=== PATIENT | male | born 1985 | race Caucasian/White ===

== ENCOUNTER 2016-09-24 21:37 | Emergency (ER) | payer OTHER ==
--- NOTE | 2016-09-24 23:06 | UC ---
Zully Bhatt Rebecca, scribed for Sapna Duong MD on 09/24/16 at 2237 . Abdominal Pain Male HPI - HPI Summary HPI Summary: Pt is a 30 y/o M who presents to [facility] c/o umbilical abd pain. Pain has been present for the last year, with intermittent episodes increasing in frequency from every few months to now approximately every 2 weeks. Last episode occurred today which was worse than previous episodes. Currently, pain is ranked 1/10 and not diffuse. There is no radiation of pain. Pain characterized as sharp and feeling as though he is constipated. Sx aggravated by laxatives, alleviated by marijuana, palpation and Pepto Bismol, unchanged by Gas-X. Has never taken a stool softener. Pt reports nausea, but denies vomiting. No hematuria. No radiation. Episodes typically will begin after sleeping for a few hours, waking him up with moderate abdominal pain. After about 45 minutes, he will proceed to have a formed BM and the pain will worsen, causing him to be unable to walk or stand. Pain will then continue for approximately 1 more hour, during which he lies in his bed, alternating positions. He typically would smoke marijuana at that point which would help ease him to sleep, after which he would wake up relatively pain free. Reports that previous episodes lasted 3-4 hours, whereas today's episode started at 7am and lasted approximately 8 hours. Pt states went to bed at 4am as he works nights. Reports that he ate Hebrew food and drank water 2.5 hours before going to sleep prior to the most recent episode. Notes that episodes are typically worse after eating fat-filled foods. Pt works overnights and typically stops drinking coffee at 1030 p.m. No extra caffeine. Pt states he was out to dinner with friend brandon. When he explained his symptoms, his friend suggested he be evaluated for appendicitis. Reports Lamotrigine medicationw as new around the time of onset of sx but pt psychiatrist do not think they are related. Pt has not discussed with PCP. FHx IBS, Celiacs Disease. Pt's medications were reviewed at this visit. - History of Current Complaint [place] [facility] [place] Complaint: STOMACH PAIN Time Seen by Provider: 09/24/16 22:32 Hx Obtained From: Patient Onset/Duration: Gradual Onset, Resolved Timing: Intermittent Episodes Lasting: - 3-4 hours Severity Initially: Moderate Severity Currently: Mild Pain Intensity: 1 Pain Scale Used: 0-10 Numeric Location: Diffuse Radiates: No Character: Sharp, Other - Feels constipation, cramping Alleviating Factor(s): Rest, Position, Meds - THC Associated Signs And Symptoms: Positive: Constipation, Other. Negative: Diaphoresis, Fever, Chest Pain, Back Pain, Nausea, Vomiting - Allergies/Home Medications Allergies/Adverse Reactions: Allergies Allergy/AdvReac Type Severity Reaction Status Date / Time Acetaminophen Allergy Swelling Verified 09/24/16 22:01 Home Medications: Home Medications Bupropion HCl [Wellbutrin Sr] 150 mg PO 09/24/16 [History] PMH/Surg Hx/FS Hx/Imm Hx Previously Healthy: Yes Endocrine History Of: Denies: Diabetes, Thyroid Disease Cardiovascular History Of: Denies: Cardiac Disorders, Hypertension Respiratory History Of: Denies: COPD, Asthma GI/ History Of: Denies: Ulcer Psychological History Of: Reports: Depression, Bipolar Disorder - Surgical History Surgical History: None - Family History Known Family History: Positive: Other - IBS, Celiacs Disease - Social History Occupation: Employed Full-time Lives: Alone Alcohol Use: None Substance Use Type: Marijuana Substance Use Comment - Amount & Last Used: for sleep Smoking Status (MU): Never Smoked Tobacco Type: eCigarettes Review of Systems Constitutional: Negative Skin: Negative Eyes: Negative ENT: Negative Respiratory: Negative Cardiovascular: Negative Gastrointestinal: Abdominal Pain - diffuse Genitourinary: Negative Motor: Negative Neurovascular: Negative Musculoskeletal: Negative Neurological: Negative Psychological: Negative All Other Systems Reviewed And Are Negative: Yes Physical Exam Triage Information Reviewed: Yes Appearance: Well-Appearing - no distress, easily changes position, ambulates, No Pain Distress, Well-Nourished Vital Signs: Initial Vital Signs Temp 97.5 F 09/24/16 21:49 Pulse 89 09/24/16 21:49 Resp 18 09/24/16 21:49 Pulse Ox 99 09/24/16 21:49 Vital Signs Reviewed: Yes Eyes: Positive: Conjunctiva Clear. Negative: Conjunctiva Inflamed ENT: Positive: Normal ENT inspection, Hearing grossly normal, Pharynx normal, TMs normal Dental Exam: Normal Neck exam: Normal Neck: Positive: Supple, Nontender, No Lymphadenopathy Respiratory Exam: Normal Respiratory: Positive: Chest non-tender, Lungs clear, Normal breath sounds, No respiratory distress Cardiovascular Exam: Normal Cardiovascular: Positive: RRR, No Murmur, Pulses Normal Abdominal Exam: Normal Abdomen Description: Positive: Nontender, No Organomegaly, Soft. Negative: CVA Tenderness (R), CVA Tenderness (L), Distended, Guarding Bowel Sounds: Positive: Present Musculoskeletal Exam: Normal Neurological Exam: Normal Neurological: Positive: Alert Psychological Exam: Normal Skin Exam: Normal Abd Pain Male Course/Dx - Course Course Of Treatment: Pt with intermittent episodes of abd pain over the course of 1 year. Pt reports minimal discomfort at present. pt with normal VS and non concerning exam. No concern for acute condition today. I had a long discussion with pt regarding referral ED for further work up vs f/u with PCP. Pt states would prefer to fu with PCP on Monday. Pt encouraged to keep a detailed food and symptom journal. Pt encouraged if pain returns, go to the emergency department, call 911 or return with any questions or other concerns. Pt states comfort and agreement with plan - Differential Dx/Clinical Impression Provider Diagnoses: episodic abdominal pain Discharge - Discharge Plan Condition: Stable Disposition: HOME Patient Education Materials: Abdominal Pain (ED) Referrals: Hima Herrera MD [Primary Care Provider] - Additional Instructions: As discussed at your visit today, the doctor that evaluated you today does not think you have an emergency condition require care at the emergency department today. However, if your pain returns, you develop fevers, vomiting it is recommended you go to the emergency department during this episode for further evaluation and treatment It is recommended you take a stools softner such as Miralax, colace, Metamucil daily It is recommended you keep a very strict food journal and pain journal - document what you eat and when you have discomfort to see if there is a correlation Contact Dr. Jules on Monday to schedule a follow-up appointment. He may check some laboratory and radiology tests. he will likely refer you to a GI specialist if your symptoms persist Call your doctor, 911 or or return with questions or concerns The documentation as recorded by the Zully mcginnis Rebecca accurately reflects the service I personally performed and the decisions made by me, Sapna Duong MD.
== END 2016-09-24 23:08 | disposition home or self-care (01) ==
LOC: UCEAST 21:37
DX: R10.13 Epigastric pain (principal); F31.9 Bipolar disorder, unspecified; Z88.6 Allergy status to analgesic agent; F12.90 Cannabis use, unspecified, uncomplicated
CPT/HCPCS: 99201; G0463